=== PATIENT | male | born 1980 | race Caucasian/White ===

== ENCOUNTER 2020-07-16 11:10 | Emergency (ER) | payer MEDICAID ==
[~2020-07-16] VITALS: Ht 172.7 cm; Wt 79.5 kg
[2020-07-16] MEDS ORDERED: DICL25 PO (11:18)
[2020-07-16 13:59] VITALS: BP 127/84
== END 2020-07-16 14:01 | disposition home or self-care (01) ==
LOC: EMS 11:13
DX: M54.5 Low back pain (principal)
CPT/HCPCS: 99283

== ENCOUNTER 2021-12-23 21:15 | Emergency (ER) | payer MEDICAID, OTHER ==
[~2021-12-23] VITALS: Ht 172.7 cm; Wt 78.0 kg
[~2021-12-23 21:15] MED LIST: DICL25TA11 PO
[2021-12-23 21:20] VITALS: BP 124/73
== END 2021-12-23 22:30 | disposition left against medical advice (07) ==
LOC: EMS 21:21
DX: Z53.21 Procedure and treatment not carried out due to patient leaving prior to being seen by health care provider (principal)